=== PATIENT | female | born 1955 | race Two or more races ===

== ENCOUNTER 2018-01-09 19:17 | Inpatient (IN) | payer OTHER ==
[~2018-01-09] VITALS: Ht 157.5 cm; Wt 65.3 kg
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
[2018-01-09 20:00] VITALS: BP 133/71
[2018-01-09] MEDS ORDERED: MAGNESIUM HYDROXIDE 30 ML UDC PO PRN (20:00)
[2018-01-09] MEDS ORDERED: ACETAMINOPHEN 325 MG TABLET PO PRN (20:00)
[2018-01-09] MEDS ORDERED: MAG HYDROX/AL HYDROX/SIMETH 30 ML UDC PO PRN (20:00)
[2018-01-09] MEDS ORDERED: LORAZEPAM 0.5 MG TABLET PO PRN (20:00)
[2018-01-09] MEDS ORDERED: LAMO100T PO (20:33)
[2018-01-09] MEDS ORDERED: HYDR-3026 PO (20:33)
[2018-01-09 23:13] VITALS: BP 133/71
[2018-01-10 08:00] VITALS: BP 114/64
[2018-01-10 08:09] LABS: BASOPHILS % (AUTO) 0.6 % (0.0-2.0); HEMATOCRIT 41 % (33-45); HEMOGLOBIN 13.8 g/dL (11.5-14.8); LYMPHOCYTES # (AUTO) 2.2 /CMM (0.8-4.8); LYMPHOCYTES % (AUTO) 36.7 % (20.0-44.0); MEAN CORPUSCULAR HEMOGLOBIN 32 PG (26.0-33.0); MEAN CORPUSCULAR HGB CONC 34 g/dl (31.0-36.0); MEAN CORPUSCULAR VOLUME 95 fL (82-100); MONOCYTES # (AUTO) 0.4 /CMM (0.1-1.30); MONOCYTES % (AUTO) 6.9 % (2.0-12.0); NEUTROPHILS # (AUTO) 3.3 /CMM (1.8-8.9); NEUTROPHILS % (AUTO) 54.8 % (43.0-81.0); PLATELET COUNT (AUTO) 236 /CMM (150-450); RDW COEFFICIENT OF VARIATION 12.7 (11.5-15.0); RED BLOOD CELL COUNT(AUTO) 4.31 MIL/uL (4.0-5.2); WHITE BLOOD COUNT (AUTO) 6.1 K/uL (4.3-11.0)
[2018-01-10 08:14] LABS: ALBUMIN 3.7 g/dL (3.4-5.0); BILIRUBIN,TOTAL 0.5 mg/dL (0.2-1.0); CALCIUM, SERUM 8.9 mg/dL (8.5-10.1); CREATININE 0.9 mg/dL (0.6-1.3); POTASSIUM 4.2 mmol/L (3.5-5.1); TOTAL PROTEIN, SERUM 7.4 g/dL (6.4-8.2)
[2018-01-10] MEDS ORDERED: LamoTRIgine 100 MG TABLET PO SCH (09:00)
[2018-01-10 09:40] LABS: CHOLESTEROL 155 mg/dL (<200); HDL CHOLESTEROL 69 mg/dL (40-60); TRIGLYCERIDES 60 mg/dL (30-150)
[2018-01-10 09:41] LABS: LDL 70 mg/dL (0-99)
--- NOTE | 2018-01-10 12:25 | NUR ---
INITIAL DISCHARGE PLAN: Patient wishes to be discharged home to [id number] [place] [address] [facility] [address] . SW confirmed with pts Elmer Ramírez [phone] who stated pt is able to return home and he would be picking pt up from hospital when stable for discharge. SW will help form a safe and proper discharge in collaboration with .
[2018-01-10 16:00] VITALS: BP 117/87
[2018-01-10] MEDS: risperiDONE-M 0.5 MG TAB.RAPDIS PO SCH (17:18)
[2018-01-10] MEDS: BENZTROPINE MESYLATE (1 MG) 1 MG TABLET PO SCH (17:19)
[2018-01-10 20:03] VITALS: BP 134/85
[2018-01-10 20:04] LABS: APPEARANCE,URINE CLEAR (CLEAR); BILIRUBIN,URINE NEGATIVE (NEGATIVE); BLOOD, URINE NEGATIVE Ery/uL (NEGATIVE); COLOR,URINE YELLOW (YELLOW); KETONES,URINE 1+ (NEGATIVE); LEUKOCYTE ESTERASE ,URINE 1+ (NEGATIVE); NITRITE, URINE NEGATIVE (NEGATIVE); PH,URINE 5.5 (5.0-8.0); PROTEIN,URINE NEGATIVE (NEGATIVE); UGLUCOSE NEGATIVE (NEGATIVE); UROBILINOGEN,URINE 0.2 EU/dL (0.2)
[2018-01-10 20:44] LABS: RBC,URINE 0-2 /HPF (0-2)
[2018-01-10 20:45] LABS: BACTERIA,URINE Moderate /HPF (None Seen); SQUAMOUS EPITHELIAL CELL,UR Many /HPF (None Seen)
[2018-01-11 08:00] VITALS: BP 106/78
[2018-01-11] MEDS: BENZTROPINE MESYLATE (1 MG) 1 MG TABLET PO SCH ×2 (09:09→17:37)
[2018-01-11] MEDS: risperiDONE-M 0.5 MG TAB.RAPDIS PO SCH ×2 (09:09→17:37)
[2018-01-11 15:57] VITALS: BP 109/72
[2018-01-11 20:00] VITALS: BP_SYST 128; BP_SYST 149; BP_DIAS 72; BP_DIAS 81
[2018-01-11] MEDS: LamoTRIgine 25 MG TABLET PO SCH (21:41)
[2018-01-11] MEDS: SULFAMETH/TRIMETH 800/160 MG 1 UDTAB TABLET PO SCH (21:41)
[2018-01-12] MEDS: TEMAZEPAM 7.5 MG CAPSULE PO PRN (00:47)
[2018-01-12 08:00] VITALS: BP 100/69
[2018-01-12] MEDS: SULFAMETH/TRIMETH 800/160 MG 1 UDTAB TABLET PO SCH ×2 (08:25→21:30)
[2018-01-12] MEDS: risperiDONE-M 0.5 MG TAB.RAPDIS PO SCH ×2 (08:25→17:18)
[2018-01-12] MEDS: BENZTROPINE MESYLATE (1 MG) 1 MG TABLET PO SCH ×2 (08:25→17:18)
[2018-01-12] MEDS: LIDOCAINE 5% (PATCH) 1 EA PATCH TP SCH (15:43)
[2018-01-12 16:08] VITALS: BP 122/74
[2018-01-12 19:58] VITALS: BP 135/74
[2018-01-12] MEDS: LamoTRIgine 25 MG TABLET PO SCH (21:30)
[2018-01-13 08:00] VITALS: BP 135/72
[2018-01-13] MEDS: risperiDONE-M 0.5 MG TAB.RAPDIS PO SCH ×2 (08:37→17:32)
[2018-01-13] MEDS: SULFAMETH/TRIMETH 800/160 MG 1 UDTAB TABLET PO SCH ×2 (08:37→21:40)
[2018-01-13] MEDS: BENZTROPINE MESYLATE (1 MG) 1 MG TABLET PO SCH ×2 (08:37→17:31)
--- NOTE | 2018-01-13 08:39 | NUR ---
UR NOTE: HAILEY contacted Amanda JordanTeresa [phone] patient case manager at [facility] and left verbal clinical review via voicemail. Pts authorization #: [id number].
--- NOTE | 2018-01-13 08:44 | NUR ---
UR NOTE: HAILEY faxed [id number] form to Amanda Huber telephonic nurse case manager [phone] with pts name, ID#, Phone #, and signature.
--- NOTE | 2018-01-13 10:54 | NUR ---
[id number]: NOTIFIED DR. CANTRELL ABOUT LAB: URINE KETONES= 1+H, URINE WBC= 11-20. NO NEW ORDERS GIVEN AT THIS TIME
[2018-01-13] MEDS: LIDOCAINE 5% (PATCH) 1 EA PATCH TP SCH (14:00)
--- NOTE | 2018-01-13 14:57 | NUR ---
UR NOTE: HAILEY received a voicemail from Amanda Huber briefcase sewer [phone] at [facility] inquiring about additional days needed for coverage. HAILEY returned phone call and left voicemail informing Amanda that has requested 3 more days of coverage with a tentative discharge date for Saturday01/15/18.
--- NOTE | 2018-01-13 14:59 | NUR ---
UR NOTE: HAILEY received a phone call from [facility] follow up lead case manager [phone] option1 requesting additional information for pts discharge plan. Cale faxed HAILEY a list of therapist that are covered under pts HMO insurance. HAILEY will provide pt with referrals to therapist near her home and help set up an intake appointment.
[2018-01-13 16:07] VITALS: BP 114/61
--- NOTE | 2018-01-13 16:23 | NUR ---
UR NOTE: HAILEY received a phone call from Amanda Huber onsite case manager [phone] at [facility] who informed HAILEY that pt has been approved 1 additional day. HAILEY will follow-up with Amanda tomorrow after discussing discharge plan with .
--- NOTE | 2018-01-13 19:30 | NUR ---
GPS RN NOTE, RECEIVED PATIENT AWAKE AND IN BED, NO S/S OR COMPLAINTS OF PAIN AT THIS TIME. PATIENT IS DISPLAYING NO S/S OF APPARENT DISTRESS AT THIS TIME. PATIENT BREATHING IS UNLABORED WITH EQUAL RISE AND FALL CHEST. PATIENT IS ALERT AND ORIENTED X 3 ON ROOM AIR WITH A SPO2 97% . PATIENT IS CALM, BRIGHT, COOPERATIVE, ANXIOUS AT TIMES, AND NEEDS REDIRECTION. PATIENT DENIES SUICIDE IDEATIONS AND HOMICIDAL IDEATIONS AT THIS TIME. PATIENT EDUCATED ON THE USE OF THE CALL STATON. PATIENT BED SIDE RAILS UP X 2 FOR SAFETY, BED IS LOCKED, LOW, AND I WILL CONTINUE TO MONITOR AND MAINTAIN SAFETY WITH THE HELP OF STAFF.
[2018-01-13 19:47] VITALS: BP 131/75
[2018-01-13] MEDS: LamoTRIgine 25 MG TABLET PO SCH (21:40)
[2018-01-13] MEDS: TEMAZEPAM 7.5 MG CAPSULE PO PRN (22:15)
--- NOTE | 2018-01-13 22:15 | NUR ---
GPS RN NOTE, PATIENT HAS A COMPLAINT OF NOT BEING ABLE TO SLEEP AND IS REQUESTING RESTORIL AT THIS TIME. PATIENT VITAL SIGNS ARE STABLE. GAVE RESTORIL 7.5MG PO HS PRN ORDERED. WILL REASSESS FOR INSOMNIA AND I WILL CONTINUE TO MONITOR THIS PATIENT.
[2018-01-14 08:05] VITALS: BP 114/72
[2018-01-14] MEDS: risperiDONE-M 0.5 MG TAB.RAPDIS PO SCH ×2 (08:06→16:42)
[2018-01-14] MEDS: SULFAMETH/TRIMETH 800/160 MG 1 UDTAB TABLET PO SCH ×2 (08:06→21:26)
[2018-01-14] MEDS: BENZTROPINE MESYLATE (1 MG) 1 MG TABLET PO SCH ×2 (08:07→16:42)
[2018-01-14 16:11] VITALS: BP 122/72
[2018-01-14] MEDS: LIDOCAINE 5% (PATCH) 1 EA PATCH TP SCH (16:41)
[2018-01-14 19:40] VITALS: BP 120/75
[2018-01-14] MEDS: LamoTRIgine 25 MG TABLET PO SCH (21:26)
[2018-01-15 08:00] VITALS: BP 139/82
[2018-01-15] MEDS: BENZTROPINE MESYLATE (1 MG) 1 MG TABLET PO SCH (08:51)
[2018-01-15] MEDS: SULFAMETH/TRIMETH 800/160 MG 1 UDTAB TABLET PO SCH (08:51)
[2018-01-15] MEDS: risperiDONE-M 0.5 MG TAB.RAPDIS PO SCH (08:51)
[2018-01-15] MEDS: LIDOCAINE 5% (PATCH) 1 EA PATCH TP SCH (13:02)
--- NOTE | 2018-01-15 14:08 | NUR ---
NURSING NOTE PT WAS DISCHARGED TODAY AT 1405 TO HER [place] [address] [place] [address] WITH HER ALDA VIA PRIVATE VEHICLE. PT WAS ESCORTED OUT OF THE UNIT WITH HER AT SIDE AND ONE STAFF. PT IS [id number], CALM, COOPERATIVE, MED COMPLIANT, DENIES SI/HI AT THE TIME OF DISCHARGE. PT SIGNED ALL PAPERWORK. ALL BELONGINGS WERE RETURNED TO PT AND PT SIGNED THE PAPERWORK. MEDICAL AND PSYCH PRESCRIPTIONS WERE GIVEN TO PT AND EXPLAINED TO PT AND PT'S . BOTH PT AND PT'S VERBALIZED UNDERSTANDING. DISCHARGE INSTRUCTIONS WERE EXPLAINED TO PT AND PT'S , BOTH VERBALIZED UNDERSTANDING OF DC INSTRUCTIONS. SKIN CHECK DONE, SKIN INTACT, VS STABLE. PT IS AMBULATORY W/O ANY ASSISTIVE DEVICES. DISCHARGE ORDER WAS OBTAINED FROM DR. LAZCANO AND PT WAS MEDICALLY CLEARED FOR DISCHARGE BY DR. HYDE.
--- NOTE | 2018-01-15 14:11 | NUR ---
DISCHARGE NOTE: Pt was discharging at 2:00pm home to [address] [facility] [address] via private vehicle. Pts Elmer [phone] transported pt home and agreed with discharge plan. Pts mood was happy with congruent affect. Pt denied visual/auditory hallucinations and denied suicidal/homicidal ideations. Pt was referred to 3 partial hospitalization programs provided by [facility] miranda Garzon [phone] at pts request. 1. [facility], 2. [facility], 3. [facility]. Pt was also given individual therapy referrals provided to her by [facility] Cale Andre backup administrative coordinator [phone]. Patient will scheduled a follow-up appointment with Psychiatrist: Dr. Panchito Ham [address] [place] [address] and Guide Winder: Dr. Jo Ann Painting [address], [place] [address] [phone]. The multidisciplinary exitcare form was done, printed, signed, and given to the patient.
--- NOTE | 2018-01-16 16:03 | NUR ---
UR NOTE: HAILEY received a phone call from Amanda Huber case briefer [phone] at [facility] requesting verbal discharge summary from MD orthopedics teacher. HAILEY dictated Amanda JESUS's discharge summary as no MD discharge note was present in medical records.
== END 2018-01-15 14:05 | disposition home or self-care (01) | DRG 885 ==
LOC: GPS 19:17
PROVIDERS: ADMIT Psychiatry & Neurology Psychosomatic Medicine; ATTEND Nurse Practitioner Acute Care
DX: F25.0 Schizoaffective disorder, bipolar type (principal); N39.0 Urinary tract infection, site not specified; F29 Unspecified psychosis not due to a substance or known physiological condition; F41.9 Anxiety disorder, unspecified; M54.2 Cervicalgia; G89.29 Other chronic pain; F31.9 Bipolar disorder, unspecified; Z88.0 Allergy status to penicillin
CPT/HCPCS: 36415; 80053-TC; 80061-TC; 81000-TC; 85025-TC; 87081-TC; 87086-TC